=== PATIENT | female | born 1975 | race Caucasian/White ===

== ENCOUNTER 2020-07-26 20:51 | Emergency (ER) | payer MEDICAID, SELFPAY ==
[~2020-07-26] VITALS: Ht 154.9 cm; Wt 68.0 kg
[2020-07-26 21:00] VITALS: BP_SYST 130
[2020-07-26 21:52] LABS: BASOPHILS % (AUTO) 0.4 % (0.0-2.0); EOSINOPHILS % (AUTO) 0.1 % (0.0-4.0); HEMATOCRIT 41.7 % (36-48); HEMOGLOBIN 14.2 g/dL (12.0-16.0); LYMPHOCYTES # (AUTO) 1.5 K/uL (1.0-5.5); LYMPHOCYTES % (AUTO) 30.9 % (20.5-51.5); MEAN CORPUSCULAR HEMOGLOBIN 31 pg (27-31); MEAN CORPUSCULAR HGB CONC 34 % (32-36); MEAN CORPUSCULAR VOLUME 89 fL (79.0-98.0); MONOCYTES # (AUTO) 0.4 K/uL (0.0-1.0); MONOCYTES % (AUTO) 7.2 % (1.7-9.3); NEUTROPHILS # (AUTO) 3.1 K/uL (1.8-7.7); NEUTROPHILS % (AUTO) 61.4 % (40.0-70.0); PLATELET COUNT (AUTO) 160 K/uL (130-430); RED BLOOD CELL COUNT(AUTO) 4.66 MIL/uL (4.2-6.2)
[2020-07-26 22:00] LABS: ANION GAP 11 (5-15); CHLORIDE 102 mmol/L (98-107); GLUCOSE 109 mg/dL (70-99); POTASSIUM 4.1 mmol/L (3.5-5.1); SODIUM SERUM 138 mmol/L (136-145); UREA NITROGEN, BLOOD 7 mg/dL (8-21)
[2020-07-26 22:12] LABS: ALANINE AMINOTRANSFERASE 153 U/L (12-78); ALBUMIN 3.4 g/dL (3.4-4.8); ASPARTATE AMINOTRANSFERASE 124 U/L (10-37); TOTAL BILIRUBIN 0.3 mg/dL (0.0-1.0)
[2020-07-26 22:14] LABS: INFLUENZA A&B ANTIGEN SCREEN NEGATIVE FOR A & B (NEGATIVE)
[2020-07-26 22:15] LABS: GFR AFRICAN AMERICAN 87 mL/min (>90)
[2020-07-27 00:10] VITALS: BP_SYST 130
== END 2020-07-27 00:10 | disposition home or self-care (01) ==
LOC: SED 20:51
DX: U07.1 COVID-19 (principal); J12.89 Other viral pneumonia
CPT/HCPCS: 36415; 71045; 80053; 84484; 84703; 85025; 86710; 87426; 93005; 99285; U0003

== ENCOUNTER 2021-04-15 00:26 | Inpatient (IN) | payer MEDICAID, SELFPAY ==
[~2021-04-15] VITALS: Ht 154.9 cm; Wt 72.7 kg
[2021-04-15] VITALS (7 sets, daily range): BP systolic 93–134
[2021-04-15 00:45] LABS: BASOPHILS # (AUTO) 0.2 K/uL (0.0-0.2); BASOPHILS % (AUTO) 1.7 % (0.0-2.0); EOSINOPHILS # (AUTO) 0.3 K/uL (0.0-0.4); EOSINOPHILS % (AUTO) 3.3 % (0.0-4.0); HEMATOCRIT 39.7 % (36-48); HEMOGLOBIN 13.4 g/dL (12.0-16.0); LYMPHOCYTES # (AUTO) 3.7 K/uL (1.0-5.5); LYMPHOCYTES % (AUTO) 35.8 % (20.5-51.5); MEAN CORPUSCULAR HEMOGLOBIN 31 pg (27-31); MEAN CORPUSCULAR HGB CONC 34 % (32-36); MEAN CORPUSCULAR VOLUME 91 fL (79.0-98.0); MONOCYTES # (AUTO) 0.7 K/uL (0.0-1.0); NEUTROPHILS # (AUTO) 5.4 K/uL (1.8-7.7); NEUTROPHILS % (AUTO) 52.2 % (40.0-70.0); PLATELET COUNT (AUTO) 256 K/uL (130-430); RED BLOOD CELL COUNT(AUTO) 4.37 MIL/uL (4.2-6.2); RED CELL DISTRIBUTION WIDTH 12.8 % (9.0-15.0); WHITE BLOOD COUNT (AUTO) 10.4 K/uL (4.8-10.8)
[2021-04-15] MEDS ORDERED: IOHEXOL 350 mgI/mL, 150 ML INFUS..BTL IV ONE (00:52)
[2021-04-15 00:56] LABS: CALCIUM 8.7 mg/dL (8.4-11.0); CREATININE 0.83 mg/dL (0.55-1.30); POTASSIUM 3.4 mmol/L (3.5-5.1)
[2021-04-15 01:00] LABS: INR 0.9 (0.8-1.2); PROTHROMBIN TIME 10.1 SECS (9.5-12.5)
[2021-04-15 01:02] LABS: ALBUMIN 3.7 g/dL (3.4-4.8); TOTAL BILIRUBIN 0.1 mg/dL (0.0-1.0)
[2021-04-15 01:37] LABS: BILIRUBIN,URINE NEGATIVE (NEGATIVE); BLOOD, URINE 1+ (NEGATIVE); CLARITY/URINE CLEAR (CLEAR); GLUCOSE,URINE NEGATIVE (NEGATIVE); KETONES,URINE NEGATIVE (NEGATIVE); LEUKOCYTE ESTERASE ,URINE NEGATIVE (NEGATIVE); NITRITE, URINE NEGATIVE (NEGATIVE); PROTEIN URINE NEGATIVE (NEGATIVE); UROBILINOGEN,URINE 0.2 (0.2-1.0)
[2021-04-15 01:39] LABS: COLOR,URINE STRAW (YELLOW)
[2021-04-15] MEDS: D5/0.45 NS 1,000 ML IV SCH ×2 (01:55→23:24)
[2021-04-15 02:00] LABS: BARBITURATE, URINE NEGATIVE (NEG <=200); BENZODIAZEPINE, URINE NEGATIVE (NEG <=150); CANNABINOID, URINE NEGATIVE (NEG <=50); COCAINE, URINE NEGATIVE (NEG <=150); METHAMPHETAMINES SCREEN,URINE NEGATIVE (NEG <=500); OPIATE, URINE NEGATIVE (NEG <=100); PHENCYCLIDINE SCREEN,URINE NEGATIVE (NEG <=25); UR TRICYCLIC ANTIDEPRESSANTS NEGATIVE (NEG <=300); URINE AMPHETAMINE NEGATIVE (NEG <=500); URINE METHADONE NEGATIVE (NEG <=200); URINE OXYCODONE SCREEN NEGATIVE (NEG <=100); URINE PROPOXYPHENE SCREEN NEGATIVE (NEG <=300)
[2021-04-15 02:23] LABS: BACTERIA,URINE FEW /HPF (None Seen); WBC,URINE 0-3 /HPF (0-3)
[2021-04-15] MEDS ORDERED: cefTRIAXone 1 GM in D5W 50 ML IV ONE (06:45)
[2021-04-15] MEDS: ASPIRIN 81 MG TABLET(ECOTRIN) PO SCH (10:10)
[2021-04-16 00:01] VITALS: BP_SYST 116
[2021-04-16 07:55] VITALS: BP_SYST 115
[2021-04-16] MEDS: ASPIRIN 81 MG TABLET(ECOTRIN) PO SCH (08:16)
[2021-04-16 11:25] VITALS: BP_SYST 118
[2021-04-16 15:34] VITALS: BP_SYST 110
[2021-04-16 20:00] VITALS: BP_SYST 104
[2021-04-16] MEDS: D5/0.45 NS 1,000 ML IV SCH (22:35)
[2021-04-16] MEDS ORDERED: HYDROcodone/ACETAMIN 5-325 MG TAB (NORCO/ VICODIN) PO PRN (23:30)
[2021-04-16] MEDS ORDERED: HYDROcodone/ACETAMIN 5-325 MG TAB (NORCO/ VICODIN) ONE (23:34)
[2021-04-17] VITALS: BP_SYST 110
[2021-04-17 08:00] VITALS: BP_SYST 116
[2021-04-17] MEDS: ASPIRIN 81 MG TABLET(ECOTRIN) PO SCH (09:02)
[2021-04-17] MEDS ORDERED: PRED20TA PO (09:47)
[2021-04-17] MEDS ORDERED: ACYC400T19 PO (09:47)
[2021-04-17 11:40] VITALS: BP_SYST 120
== END 2021-04-17 12:30 | disposition home or self-care (01) | DRG 48 ==
LOC: SED 00:26 → STU 01:24 → SMU 04-16 16:03
PROVIDERS: ADMIT Internal Medicine; ATTEND Internal Medicine
DX: G51.0 Bell's palsy (principal); N39.0 Urinary tract infection, site not specified; Z20.822 Contact with and (suspected) exposure to COVID-19; R29.702 NIHSS score 2; Z86.16 Personal history of COVID-19
CPT/HCPCS: 36415; 70450-TC; 70496; 70498; 70551; 71045; 76376; 80053; 80307; 81000; 84484; 85025; 85610-TC; 85730-TC; 86886; 86900; 86901; 92610-GN; 93005; 99285; G0378; J0696; J7060; Q9967